=== PATIENT | male | born 1990 | race Caucasian/White ===

== ENCOUNTER 2024-01-19 15:21 | Emergency (ER) | payer BC, SELFPAY ==
[2024-01-19 15:24] VITALS: BP 143/94
[2024-01-19 15:36] LABS: Glucose - Point of Care 109 mg/dl (70-99)
[2024-01-19 15:48] LABS: % Basophils 0.5 % (0-2); % Eosinophils 1.1 % (0-6); % Immature Granulocytes 0.7 % (0-0.5); % Lymphocytes 28.5 % (20.5-51.1); % Monocytes 7.2 % (1.7-9.3); Absolute Eosinophils 0.1 10^3/uL (0-0.7); Absolute Immature Granulocytes 0.1 10^3/uL (0-0.05); Absolute Lymphocytes 2.3 10^3/uL (1.2-3.4); Absolute Monocytes 0.6 10^3/uL (0.1-0.6); Absolute Neutrophils 5.1 10^3/uL (1.4-6.5); Hematocrit 44.5 % (39.0-52.0); Hemoglobin 16.8 g/dL (13.0-18.0); Mean Corp Hgb Conc. 37.8 g/dL (33.0-37.0); Mean Corpuscular Volume 82.1 fL (80.0-94.0); Nucleated Red Blood Cells % 0 % (-); Platelet Count 290 10^3/uL (130-400); Red Blood Cell Count 5.42 10^6/uL (4.70-6.10); Red Cell Dist. Width 11.7 % (11.5-14.5); White Blood Cell Count 8.2 10^3/uL (4.8-10.8)
[2024-01-19 15:58] LABS: COVID-19 Antigen Negative (Negative)
[2024-01-19 16:02] LABS: ALT (SGPT) 40 U/L (0-50); AST (SGOT) 38 U/L (17-59); Albumin 4.7 g/dl (3.5-5.0); Alkaline Phosphatase 87 U/L (38-126); Blood Urea Nitrogen 17 mg/dl (9-20); Calcium 9.2 mg/dl (8.4-10.2); Carbon Dioxide 24 mmol/L (22-30); Chloride 103 mmol/L (98-107); Glucose 113 mg/dl (70-99); Potassium 4.2 mmol/L (3.5-5.1); Sodium 134 mmol/L (135-145); Total Bilirubin 0.8 mg/dl (0.2-1.3); Total Protein 7.6 g/dl (6.3-8.2); eGFR > 60.00
[2024-01-19 17:26] VITALS: BMI 29.3
[2024-01-19 18:00] VITALS: BP 134/97
[2024-01-19 19:00] VITALS: BP 132/94; BP 133/83; BP 136/84; BP 138/90; PULSE 74; PULSE 75; PULSE 78
--- NOTE | 2024-01-19 19:01 | ED.GENMED ---
History of Present Illness
General
Chief Complaint: Dizziness
Source: patient
Exam Limitations: none
Time Seen by Provider: 01/19/24 18:39
Travel History
Have you had any contact with someone who has COVID-19?: No
Do you have any symptoms of coronavirus? Fever > 100 degrees, chills, cough, shortness of breath, sore throat, loss of taste or smell, muscle aches, or headache?: No
History of Present Illness
History of Present Illness:
This is a 33 year old male that comes in with c/o lightheadedness. States that he works here and he started to feel lightheaded on Thursday. States that he even left early on Thursday. States that he tried to hydrated. States that yesterday he was a
little lightheaded but this resolved on its own. Then today he eat breakfast around 10:30am and came to work. 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 States that he feels unsteady like he
is buzzed or he is going to pass out. States that he does have a headache now. Denies any fever, chills, chest pain, SOB, abd pain, nausea, vomiting, diarrhea, urinary burning.
Past History
Past History
ED Past Medical History: None; Negative Asthma, HTN, Hypercholesterolemia or NIDDM
ED Past Surgical History: Tonsilectomy and Other (Myringotomy tubes as child)
Social History
Tobacco: Non-smoker
Alcohol: Occasional
Personal: Single
Living: with family
Employment: Employed
Review of Systems
Review of Systems
All Other Systems: ROS reviewed and negative except as documented in HPI and ROS
Constitutional: Reports no symptoms; Denies fever or chills
EENT: Reports no symptoms
Respiratory: Reports no symptoms; Denies cough or trouble breathing
Cardiac: Reports no symptoms; Denies chest pain
ABD/GI: Reports no symptoms; Denies abdominal pain, nausea, vomiting or diarrhea
: Reports no symptoms; Denies dysuria, frequency or urgency
Musculoskeletal: Reports no symptoms
Skin: Reports no symptoms
Neurological: Reports headache and other (Lightheaded); Denies dizzy
Psychiatric: Reports no symptoms
Phy Exam
General Physical Exam
General Presentation: well appearing and no apparent distress
General age: appears stated age
General Skin: warm and dry
General Habitus: normal
General Mental: alert
General Hydration: appears well hydrated
ENT Exam
ENT Exam: TM's normal, pharynx normal and neck supple
Eye Exam
Eye Exam: EOMI
Cardiovascular Exam
Cardiovascular Exam: regular rate/rhythm, no edema, no murmur and normal peripheral pulses
Pulmonary Exam
Pulmonary Exam: lungs clear, no respiratory distress, no rales, chest non tender, no crackles, no rhonchi, no wheezing and no cough
Gastrointestinal Exam
Gastrointestinal Exam: normal bowel sounds, non tender, soft, no organomegaly, no pulsatile mass and non distended
Musculoskeletal Exam
Musculoskeletal Exam: full ROM and no edema
Skin Exam
Skin Exam: normal color, warm/dry, no rash and no petechia
Psychiatric Exam
Psychiatric Exam: normal mood/affect
Course
Orders/Labs/Results
Orders:
Orders
01/19/24 15:27
EKG [Electrocardiogram (*1)] Urgent
Reason for Study: Vertigo / Dizzy
01/19/24 15:28
EKG- Treatment ONCE
01/19/24 15:32
CBC/With Diff [Complete Blood Count/With Diff] Urgent
CMP [Comprehensive Metabolic Panel] Urgent
COVID-19 Antigen Urgent
Source: Nasal Swab
Influenza A+B Rapid Molecular Urgent
LADONNA Source: Nasal Swab
Specimen Description:
01/19/24 19:00
CT Head W/o Iv Contrast Urgent
Comment:
Reason For Exam: Dizziness headache off balance
Orthostatic VS- Treatment ONCE
0.9% Sodium Chloride 1000 ml [Nss] 1,000 ml IV BOLUS
Abnormal Lab Results
01/19/24 01/19/24
15:32 15:35
MCHC 37.8 H g/dL
(33.0-37.0)
Abs Immat Gran (auto) 0.1 H 10^3/uL
(0-0.05)
Immature Gran % 0.7 H %
(0-0.5)
Sodium 134 L mmol/L
(135-145)
Glucose 113 H mg/dl
(70-99)
POC Glucose 109 H mg/dl
(70-99)
01/19/24 15:32
01/19/24 15:32
Glucose nonfasting. COVID negative
Vital Signs
Initial and Last Documented VS:
Initial Vital Signs
Temp Pulse Resp BP Pulse Ox
98.1 F 94 20 143/94 98
01/19/24 15:24 01/19/24 15:24 01/19/24 15:24 01/19/24 15:24 01/19/24 15:24
Last Documented Vital Signs
Temp Pulse Resp BP Pulse Ox
98.1 F 68 18 132/94 97
01/19/24 15:24 01/19/24 19:30 01/19/24 19:30 01/19/24 19:26 01/19/24 19:30
MDM/Problems Addressed
Differential Diagnosis Includes:
Dehydration. Viral syndrome,
MDM/Problems Addressed:
This is a 33 year old male that comes in with c/o lightheadedness. States that this started on Thursday and he went home early. States that he had some yesterday but this resolved on its own. Then today he was work and became lightheaded. States that
he feels like he has a buzz and is unsteady on his feet.
Will get labs. CT head. Orthostatics and give IV fluids.
Back into see patient. Explained that the CT of the head is normal. His blood work is normal and he is negative for COVID and Influenza. Explained to patient that this may be something viral. Will have patient rest for the next 2 days and increase
his water intake. Follow up with the family doctor. He may wish to have patient wear a Holter Monitor. Patient to return with any concerns.
Chronic conditions affecting care:
NA
Acute Exacerbation and/or Progression of Chronic Illness:
NA
*Radiology
Radiology exam reviewed: radiology read reviewed (CT head-No acute intracranial abnormality noted. )
*Pulse Oximetry
Patient hypoxic: no
*EKG
Interpreted by ED Provider?: Yes
Heart Rate: 79
Rate: normal
Rhythm: sinus
[place]: normal axis
Interval: normal interval
QRS Pattern: normal QRS
Ischemia: no ischemia
*Learning Support Assistant Interpretation
Rate: normal
Heart Rate: 78
Rhythm: sinus
*Critical Care Note
Total Time (30-74mins, 75-104mins- exclusive of procedures): Not Applicable
ED Attending Note
-
Portions of this chart may have been created with voice recognition software.� Occasional wrong word or��sound alike� substitutions may have occurred due to the inherent limitations of voice recognition software.
Discharge Plan
Departure
Patient Disposition: Home (Routine Discharge)
Date of Disposition: 01/19/24
Time of Disposition: 21:01
Patient with high blood pressure during this ER visit?: Yes
Condition: Good
Covid-19: Negative COVID-19
Discharge Problem:
Lightheadedness
Instructions: Dizziness, Nonvertigo, (DC), BLOOD PRESSURE
Referrals:
NONE,* [Family Provider] -
Stand Alone Forms: Return to Work
Activity Restrictions/Additional Instructions:
As discussed, your blood work is normal along with the CT of your head. You are COVID and Influenza negative. This may be just something viral. Please increase your water intake to 8-8oz glasses daily. Follow up with the family doctor for recheck.
He may wish for you to wear a Holter monitor to see if there is any ectype that has not been seen. IF YOU HAVE INCREASED DIZZINESS, OR YOU HAVE ANY OTHER CONCERNS PLEASE RETURN TO THE EMERGENCY ROOM.
Interventions
Interventions:
*Risk Screen - Suicide Last Done: 01/19/24 15:24
*General Assessment Last Done: 01/19/24 15:24
*Neglect/Abuse Screening Last Done: 01/19/24 15:24
ED- Fall Risk Assessment Last Done: 01/19/24 17:15
*ED COVID-19 Vaccine History Last Done: 01/19/24 15:24
ED- Neurological Assessment Last Done: 01/19/24 17:15
ED Swallowing Screen Last Done: 01/19/24 17:15
[2024-01-19 19:23] VITALS: BP 133/83
[2024-01-19 19:24] VITALS: BP 138/90
[2024-01-19 19:26] VITALS: BP 132/94
[2024-01-19] MEDS: NSS 1000 IV (19:28)
== END 2024-01-19 21:31 | disposition home or self-care (01) ==
LOC: EMR 15:21
PROVIDERS: Emergency Medicine; EMERGENCY PHYSICIAN Emergency Medicine
DX: R42 Dizziness and giddiness (principal)
CPT/HCPCS: 99285; 96360; 70450; 80053; 82962; 85025; 87502; 87811; 93005